=== PATIENT | female | born 1960 | race Caucasian/White ===

== ENCOUNTER 2017-03-03 09:50 | Emergency (ER) | payer OTHER ==
[2017-03-03 10:01] VITALS: BP 131/82; PULSE 84; TEMP 98.4; O2SAT 99
--- NOTE | 2017-03-03 10:22 | C.PDOC ---
History Of Present Illness 56 y/o female presents to the ED with complains of intermittent enlarged vein over right wrist x4 days, worse after cooking all day. Pt denies pain but is worried. Pt also requesting refills of multiple medications, advised to see PMD. Pt denies SOB, chest pain, weakness, numbness or any other complaints. Time Seen by Provider: 03/03/17 10:09 Chief Complaint (Nursing): Finger,Hand,&Wrist History Per: Patient History/Exam Limitations: no limitations Onset/Duration Of Symptoms: Days, Intermittent Episodes Current Symptoms Are (Timing): Still Present Quality: "Pain" Severity: Mild Exacerbating Factor(s): Strenuous Use Of Affected Area Recent travel outside of the [place]: No Past Medical History Reviewed: Historical Data, Nursing Documentation, Vital Signs Vital Signs: Last Vital Signs Temp 98.4 F 03/03/17 10:00 Pulse 84 03/03/17 10:00 Resp 16 03/03/17 10:00 BP 131/82 03/03/17 10:00 Pulse Ox 99 03/03/17 10:22 - Medical History PMH: Asthma, HTN - [facility] Procedures OTHER SKIN & SUBQ I D (05/26/13) Family History: States: Unknown Family Hx - Social History Hx Tobacco Use: Yes Hx Alcohol Use: Yes (social) Hx Substance Use: No - Immunization History Hx Tetanus Toxoid Vaccination: No Hx Influenza Vaccination: No Hx Pneumococcal Vaccination: No Review Of Systems Except As Marked, All Systems Reviewed And Found Negative. Constitutional: Negative for: Fever Cardiovascular: Positive for: Other (enlarged vein over right wrist). Negative for: Chest Pain Respiratory: Negative for: Shortness of Breath Neurological: Negative for: Weakness, Numbness Physical Exam - Physical Exam Appears: Non-toxic, No Acute Distress Skin: Warm, Dry, No Rash Head: Atraumatic, Normacephalic Cardiovascular: Rhythm Regular, No Murmur Extremity: Normal ROM, Other (Right hand normal, no tenderness, no erythema; vein compressible, no creppitus) Extremity: Bilateral: Atraumatic Neurological/Psych: Oriented x3 ED Course And Treatment O2 Sat by Pulse Oximetry: 99 (on room air) Pulse Ox Interpretation: Normal Disposition Counseled Patient/Family Regarding: Diagnosis, Need For Followup - Disposition Referrals: [facility] [Outside] [facility] [Outside] Disposition: HOME/ ROUTINE Disposition Time: 10:20 Condition: GOOD Forms: Gen Discharge Inst Chinese Print Language: PERSIAN - Clinical Impression Clinical Impression: Engorgement of vein - Scribe Statement The provider has reviewed the documentation as recorded by the Ravinderibpreston Carranza Provider Attestation: All medical record entries made by the Ravinderibe were at my direction and personally dictated by me. I have reviewed the chart and agree that the record accurately reflects my personal performance of the history, physical exam, medical decision making, and the department course for this patient. I have also personally directed, reviewed, and agree with the discharge instructions and disposition.
[2017-03-03 10:31] VITALS: RESP 18
== END 2017-03-03 10:31 | disposition home or self-care (01) ==
LOC: C.ER 09:50
DX: I87.8 Other specified disorders of veins (principal)

== ENCOUNTER 2017-03-12 08:33 | Emergency (ER) | payer OTHER ==
[2017-03-12 08:46] VITALS: PULSE 76; RESP 18; TEMP 97.9; O2SAT 95
--- NOTE | 2017-03-12 09:40 | C.PDOC ---
History Of Present Illness A 56 year old female, with a history of HTN, DM, and CAD, presents to the emergency room with requests of medication refills for her chronic disease. Patient denies any active complaints at this present time. Patient admits to having a scheduled clinic appointment on 04/16/2017. Time Seen by Provider: 03/12/17 09:31 Chief Complaint (Nursing): Med Refill History Per: Patient History/Exam Limitations: no limitations Onset/Duration Of Symptoms: Unknown Current Symptoms Are (Timing): Still Present Past Medical History Reviewed: Historical Data, Nursing Documentation, Vital Signs Vital Signs: Last Vital Signs Temp 97.9 F 03/12/17 08:44 Pulse 76 03/12/17 08:44 Resp 18 03/12/17 08:44 BP 142/85 03/12/17 09:55 Pulse Ox 95 03/12/17 11:29 - Medical History PMH: Asthma, HTN Denies: Chronic Kidney Disease - [facility] Procedures OTHER SKIN & SUBQ I D (05/26/13) Family History: States: Unknown Family Hx - Social History Hx Tobacco Use: Yes Hx Alcohol Use: Yes (social) Hx Substance Use: No - Immunization History Hx Tetanus Toxoid Vaccination: No Hx Influenza Vaccination: No Hx Pneumococcal Vaccination: No Review Of Systems Except As Marked, All Systems Reviewed And Found Negative. Constitutional: Negative for: Fever, Chills Cardiovascular: Negative for: Chest Pain Respiratory: Negative for: Shortness of Breath Gastrointestinal: Negative for: Nausea, Vomiting, Abdominal Pain, Diarrhea Neurological: Negative for: Weakness, Numbness, Headache, Dizziness Physical Exam - Physical Exam Appears: Well, Non-toxic, No Acute Distress Skin: Normal Color, Warm, Dry, No Rash Eye(s): bilateral: PERRL Nose: Normal, No Tenderness Oral Mucosa: Moist Throat: Normal, No Erythema, No Exudate Neck: Normal ROM, No Midline Cervical Tenderness, No Paracervical Tenderness Cardiovascular: Rhythm Regular Respiratory: Normal Breath Sounds, No Rales, No Rhonchi Gastrointestinal/Abdominal: Soft, No Tenderness, No Guarding, No Rebound Back: No CVA Tenderness Extremity: No Tenderness, No Pedal Edema Neurological/Psych: Oriented x3, Normal Speech, Normal Cognition ED Course And Treatment O2 Sat by Pulse Oximetry: 95 Pulse Ox Interpretation: Normal Progress Note: On re-eavluation, pt is afebrile, hemodynamicaly stable. Non- toxic. AMbulatory in ED with stable gait. Asymptomatic. Pt advised and ref. to F/u with PMD In 2-3 days for re-eavl.and medicaion refill. return if any new changes. Disposition Counseled Patient/Family Regarding: Diagnosis, Need For Followup, Rx Given - Disposition Referrals: Sammi Hernandez MD [Staff Provider] - Disposition: HOME/ ROUTINE Disposition Time: 09:37 Condition: STABLE Prescriptions: amLODIPine [Norvasc] 5 mg PO DAILY #30 tab Clopidogrel [Plavix] 75 mg PO DAILY #30 tab Lisinopril/Hydrochlorothiazide [Lisinopril-Hctz 20-25 mg Tab] 1 each PO DAILY # 30 tablet metFORMIN [glucOPHAGE] 500 mg PO BID #60 tab Instructions: Sumatriptan (By injection), Diabetes Mellitus Type 2 in Adults ( ED), Hypertension (ED), Medicine Refill (ED) Print Language: YAKUT - Clinical Impression Clinical Impression: Medication refill, Diabetes mellitus, Hypertension - Scribe Statement The provider has reviewed the documentation as recorded by the Scribpreston Gonzales All medical record entries made by the Ravinderibpreston were at my direction and personally dictated by me. I have reviewed the chart and agree that the record accurately reflects my personal performance of the history, physical exam, medical decision making, and the department course for this patient. I have also personally directed, reviewed, and agree with the discharge instructions and disposition.
[2017-03-12 09:56] VITALS: BP 142/85
== END 2017-03-12 09:58 | disposition home or self-care (01) ==
LOC: C.ER 08:33
DX: Z76.0 Encounter for issue of repeat prescription (principal); E11.9 Type 2 diabetes mellitus without complications; I10 Essential (primary) hypertension